=== PATIENT | female | born 1980 | race Caucasian/White ===

== ENCOUNTER 2023-01-05 14:36 | Emergency (ER) | payer OTHER, MEDICAID, SELFPAY ==
[2023-01-05 14:39] VITALS: BP 141/64; PULSE 69; RESP 16; TEMP 36.3; O2SAT 98; BMI 24.3
--- NOTE | 2023-01-05 14:54 | ED_ITS ---
HPI - Abdominal Pain <FREDY Marr - Last Filed: 01/05/23 16:52> General Chief Complaint: Abdominal Pain Stated Complaint: rt flank pain Time Seen by Provider: 01/05/23 14:42 Source: patient Mode of arrival: Ambulatory History of Present Illness HPI narrative: 42-year-old female, daily smoker, presents to the emergency department with right flank pain since 0130 today. Patient states that she took ibuprofen at that time, and a few hours afterwards, but did not help with the pain. Patient states that it feels like a ?labor like? pain with 2 seconds on and 2 seconds off of sharp pain. History kidney infection in the past, no history of kidney stones. Patient denies any extraneous activity last evening and pain is not worsened with movement or palpation. Patient does endorse that she has had to urinate more frequently since the pain started, and may have mild improvement of pain after urinating. Menses ended yesterday. Related Data Allergies Allergy/AdvReac Type Severity Reaction Status Date / Time No Known Drug Allergies Allergy Verified 01/05/23 14:38 Review of Systems <FREDY Marr - Last Filed: 01/05/23 16:52> Review of Systems Narrative: Narrative: See HPI. GENERAL: Denies chills, fatigue, fever, sweats. HEENT: Denies sinus pain, ear pain, sore throat, difficulty swallowing, dizziness. RESPIRATORY: Denies dyspnea, cough, wheezing, sputum. CARDIOVASCULAR: Denies chest pain, palpitations, edema. GASTROINTESTINAL: Denies nausea, vomiting, abdominal pain, diarrhea, constipation, vaginal itching, bleeding or discharge. : Denies dysuria, incontinence, hematuria, urinary retention. Endorses urinary frequency and right flank pain. MSK: Denies weakness, joint pain, or bony pain. SKIN: Denies rash, skin lesions, or pruritis. NEUROLOGIC: Denies weakness, dizziness, headache, numbness, confusion. PSYCHIATRIC: No concerning psychosocial issues. Patient History <FREDY Marr - Last Filed: 01/05/23 16:52> Social History Smoking Status: Current every day smoker Smoking Status: Current every day smoker tobacco type: cigarettes alcohol intake frequency: 0-2 drinks per day Substance Use Type: does not use Exam <FREDY Marr - Last Filed: 01/05/23 16:52> Narrative Exam Narrative: Exam Narrative: GENERAL: This is a well-nourished, well-developed patient, in no acute distress. HEAD: Atraumatic. Normocephalic. EYES: Pupils equal round and reactive. No scleral icterus, injection or drainage. ENT: Nose without bleeding, purulent drainage. Airway patent. NECK: Trachea midline. No JVD. CARDIOVASCULAR: Regular rate and rhythm without murmurs, peripheral pulses intact, cap refill <2 sec. RESPIRATORY: Breath sounds equal and clear bilaterally. No wheezes, rales, or rhonchi. No cough. No increased respiratory effort. No accessory muscle use. GASTROINTESTINAL: Abdomen soft, non-tender, nondistended without guarding or rebound. No suprapubic pain. No CVA tenderness. MSK: Moves all extremities. Normal range of motion, no clubbing or edema. Neurovascularly intact. NEURO: A&O x 3. SKIN: Warm, dry, no rashes or lesions noted. Initial Vital Signs Initial Vital Signs: Vital Signs Temperature 97.4 F L 01/05/23 14:39 Pulse Rate 69 01/05/23 14:39 Respiratory Rate 16 01/05/23 14:39 Blood Pressure 141/64 H 01/05/23 14:39 Pulse Oximetry 98 01/05/23 14:39 Oxygen Delivery Method Room Air 01/05/23 14:39 Reviewed <Maya De Dios DO - Last Filed: 01/06/23 07:50> Initial Vital Signs Initial Vital Signs: Vital Signs Temperature 97.4 F L 01/05/23 14:39 Pulse Rate 69 01/05/23 14:39 Respiratory Rate 16 01/05/23 14:39 Blood Pressure 141/64 H 01/05/23 14:39 Pulse Oximetry 98 01/05/23 14:39 Oxygen Delivery Method Room Air 01/05/23 14:39 Course <FREDY Marr - Last Filed: 01/05/23 16:52> Orders Ordered: ED Orders 01/05/23 14:45 Urine Culture Stat Urine Microscopic Stat 01/05/23 15:42 CT abdomen pelvis w con Stat 01/05/23 15:55 Ammonia ([email or web address]) Stat Complete Blood Count AUTO DIFF Stat Comprehensive Metabolic Panel Stat Lipase Stat Vital Signs Vital signs: Vital Signs - 8 hr 01/05/23 14:39 Temperature 97.4 F L Pulse Rate 69 Respiratory Rate 16 Blood Pressure 141/64 H Pulse Oximetry 98 Oxygen Delivery Method Room Air <Maya De Dios DO - Last Filed: 01/06/23 07:50> Orders Ordered: ED Orders 01/05/23 14:45 Urine Culture Stat Urine Microscopic Stat 01/05/23 15:42 CT abdomen pelvis w con Stat 01/05/23 15:55 Ammonia (NH3) Stat Complete Blood Count AUTO DIFF Stat Comprehensive Metabolic Panel Stat Lipase Stat Vital Signs Vital signs: Vital Signs - 8 hr 01/05/23 14:39 Temperature 97.4 F L Pulse Rate 69 Respiratory Rate 16 Blood Pressure 141/64 H Pulse Oximetry 98 Oxygen Delivery Method Room Air MDM - Abdominal Pain <FREDY Marr - Last Filed: 01/05/23 16:52> Differential Diagnosis Differential diagnosis: Likely abdominal pain, calculus of kidney and other (UTI, pyelonephritis) Lab Data 01/05/23 15:55 01/05/23 15:55 Labs: Lab Results 01/05/23 01/05/23 Range/Units 14:45 15:55 WBC 10.9 (4.5-11.0) X10^3/uL RBC 3.75 L (4.0-5.2) X10^6/uL Hgb 13.6 (12.0-16.0) g/dL Hct 40.1 (36-46) % MCV 106.8 H (80-100) fL MCH 36.3 H (26-34) PG MCHC 34.0 (30-36) % RDW 12.7 (11.6-14.8) % Plt Count 310 (150-400) X10^3/uL Neut % (Auto) 71.6 (50-75) % Lymph % (Auto) 18.5 L (25-40) % [place] % (Auto) 7.8 (3-14) % Eos % (Auto) 1.3 L (2-4) % Baso % (Auto) 0.8 (0-2) % Neut # (Auto) 7800 H (1593-3843) /uL Lymph # (Auto) 2000 (7210-4787) /uL [place] # (Auto) 800 (0-900) /uL Eos # (Auto) 100 (0-450) /uL Baso # (Auto) 100 (0-100) /uL Sodium 138 (137-145) mmol/L Potassium 3.9 (3.4-5.1) mmol/L Chloride 104 (98-107) mmol/L Carbon Dioxide 25 (22-32) mmol/L BUN 12 (7-17) mg/dL Creatinine 0.64 (0.52-1.04) mg/dL Estimated GFR > 60 (>60) mL/min BUN/Creatinine Ratio 18.8 (6-22) Glucose 113 H (70-100) mg/dL Calcium 10.0 (8.4-10.2) mg/dL Total Bilirubin 0.3 (0.2-1.3) mg/dL AST 29 (14-36) IU/L ALT 23 (<35) IU/L Alkaline Phosphatase 73 (38-126) U/L Ammonia 14 (9-30) umol/L Total Protein 7.1 (6.3-8.2) g/dL Albumin 4.4 (3.5-5.0) g/dL Globulin 2.7 (1.7-4.1) g/dL Albumin/Globulin Ratio 1.6 (1.0-2.8) Lipase 108 (23-300) U/L Urine RBC 0-1/hpf (0-5/HPF) Urine WBC 1-5/hpf (0-5/HPF) Ur Squamous Epith Cells 5-10 /hpf H (0-5/HPF) Urine Bacteria Occasional (0-1) (None) Ur Culture Indicated? Specimen cultured Point of care testing: Point of Care Testing Test Results Negative Urine Dip Bedside Urine Glucose Negative Bedside Urine Bilirubin - Negative Bedside Urine Ketone - Negative Urine Specific [place] 1.005 Bedside Urine Occult Blood +++ Bedside Urine pH 6.0 Bedside Urine Protein - Negative Bedside Urine Urobilinogen - Negative Bedside Urine Nitrite - Negative Bedside Urine Leukocytes - Negative Esterase Imaging Data CT scan - abdomen/pelvis: Radiologist's Impression: Close Abdomen/Pelvis CT (Signed) Cayden Lockhart - 01/05/23 Launch?[address] [address] [address] Scan Report Signed Patient: Corinna Hanley MR#: [id number] : 1980 Acct:[id number] Age/Sex: 42 / F Date of Service: 01/05/23 Loc: ED Accession Number: [id number] Procedure: CT abdomen pelvis w con Ordering Provider: Jose Dc PROCEDURE: CT ABDOMEN PELVIS W CON INDICATIONS: Right pain TECHNIQUE: After the administration of intravenous contrast, axial sections acquired from the lung bases to the pubic symphysis. Coronal and sagittal reformats were performed. For radiation dose reduction, the following was used: automated exposure control, adjustment of mA and/or kV according to patient size. COMPARISON: None. FINDINGS: Lower thorax: The lung bases are clear. Heart size normal. No hiatal hernia. Liver: Normal in size and attenuation. No contour deformity present. Biliary system: No calcified cholelithiasis or pericholecystic inflammation. No intra or extrahepatic bile duct dilatation. Pancreas: Unremarkable without mass or inflammation evident. Spleen: Normal in size and density. Adrenals: Normal morphology and density. Reproductive system: Unremarkable as visualized. Urinary system: Right renal multifocal cysts and left renal nonobstructing calculus measuring 7 x 3 mm no hydronephrosis or solid mass lesion bilaterally. Right renal scarring noted. Gastrointestinal system: The bowel is unremarkable without evidence of bowel obstruction or inflammation. The stomach appears unremarkable. Appendix: No findings to suggest acute appendicitis. Peritoneal spaces: No mesenteric or retroperitoneal adenopathy. No free air. No free fluid. Vasculature: The IVC, aorta and iliac vasculature are unremarkable. Abdominal wall: Abdominal wall intact without evidence of ventral or inguinal hernias. Musculoskeletal: Normal bone mineralization. No acute fractures. IMPRESSION: 1. No acute CT findings in the abdomen and pelvis. Paragraphs incidental nonobstructing left renal calculus Approved by: Cayden Lockhart M.D. on 01/05/2023 at 15:31 MDM Narrative Medical decision making narrative: 42-year-old female, daily smoker, presenting to the emergency department with right flank pain and urinary frequency. Point of care urine dip was not consistent with UTI, positive blood only. HCG was negative. Will obtain baseline labs and abdominal/pelvis CT. CT revealed Right renal multifocal cysts and left renal nonobstructing calculus measuring 7 x 3 mm. Baseline labs are non concerning. Patient is stable and will be discharged home. Instructions included drinking plenty of water, at least 60 oz per day, and NSAIDs for discomfort. Discussed plan of care and worsening symptoms that would necessitate a return visit. Patient and spouse verbalized understanding and were agreeable with course of action. <Maya De Dios, DO - Last Filed: 01/06/23 07:50> Lab Data Labs: Lab Results 01/05/23 01/05/23 Range/Units 14:45 15:55 WBC 10.9 (4.5-11.0) X10^3/uL RBC 3.75 L (4.0-5.2) X10^6/uL Hgb 13.6 (12.0-16.0) g/dL Hct 40.1 (36-46) % MCV 106.8 H (80-100) fL MCH 36.3 H (26-34) PG MCHC 34.0 (30-36) % RDW 12.7 (11.6-14.8) % Plt Count 310 (150-400) X10^3/uL Neut % (Auto) 71.6 (50-75) % Lymph % (Auto) 18.5 L (25-40) % [place] % (Auto) 7.8 (3-14) % Eos % (Auto) 1.3 L (2-4) % Baso % (Auto) 0.8 (0-2) % Neut # (Auto) 7800 H (5197-3885) /uL Lymph # (Auto) 2000 (9488-1420) /uL [place] # (Auto) 800 (0-900) /uL Eos # (Auto) 100 (0-450) /uL Baso # (Auto) 100 (0-100) /uL Sodium 138 (137-145) mmol/L Potassium 3.9 (3.4-5.1) mmol/L Chloride 104 (98-107) mmol/L Carbon Dioxide 25 (22-32) mmol/L BUN 12 (7-17) mg/dL Creatinine 0.64 (0.52-1.04) mg/dL Estimated GFR > 60 (>60) mL/min BUN/Creatinine Ratio 18.8 (6-22) Glucose 113 H (70-100) mg/dL Calcium 10.0 (8.4-10.2) mg/dL Total Bilirubin 0.3 (0.2-1.3) mg/dL AST 29 (14-36) IU/L ALT 23 (<35) IU/L Alkaline Phosphatase 73 (38-126) U/L Ammonia 14 (9-30) umol/L Total Protein 7.1 (6.3-8.2) g/dL Albumin 4.4 (3.5-5.0) g/dL Globulin 2.7 (1.7-4.1) g/dL Albumin/Globulin Ratio 1.6 (1.0-2.8) Lipase 108 (23-300) U/L Urine RBC 0-1/hpf (0-5/HPF) Urine WBC 1-5/hpf (0-5/HPF) Ur Squamous Epith Cells 5-10 /hpf H (0-5/HPF) Urine Bacteria Occasional (0-1) (None) Ur Culture Indicated? Specimen cultured Point of care testing: Point of Care Testing Test Results Negative Urine Dip Bedside Urine Glucose Negative Bedside Urine Bilirubin - Negative Bedside Urine Ketone - Negative Urine Specific [place] 1.005 Bedside Urine Occult Blood +++ Bedside Urine pH 6.0 Bedside Urine Protein - Negative Bedside Urine Urobilinogen - Negative Bedside Urine Nitrite - Negative Bedside Urine Leukocytes - Negative Esterase Discharge Plan Departure Patient Disposition: Home Clinical Impression: Calculus of kidney Instructions: DI for Kidney Stones Activity Restrictions/Additional Instructions: *You have been diagnosed with kidney stones. Your CT revealed Right renal multifocal cysts and left renal nonobstructing calculus measuring 7 x 3 mm. Your urine dip was not consistent with a urinary tract infection. Please make sure you are drinking plenty of water, at least 60 oz of water per day, and try ibuprofen 600 mg 3 times a day with food for the discomfort. For any worsening symptoms that include intolerable pain, Shortness of breath, chest pain, etc. please return to the emergency department immediately. Otherwise, please follow-up with your family doctor as needed. *What to do: *Please continue to take your regular medications as directed. [ ] New medication prescriptions sent to your pharmacy: [ ] [ ] New medication written as a paper prescription [x ] No new medications given *Please follow up with your primary care provider in 2-3 days, call for an appointment. Let them know you were seen in the Emergency Department and that we ask that you be seen in follow up. We will electronically transmit a record of today's note if your PCP is in our system *If you do not have a primary care provider please contact the [facility] Resource line at [phone]. They will ask some questions about your medical history and help get you set up with a doctor in the community. ? Return to ER if you should have any new, worsening or concerning symptoms, such as worsening pain, severe headache, confusion, chest pain, difficulty breathing, fever greater than 101 F, shaking chills, persistent vomiting to the point that you cannot drink fluids, or other new or worsening symptoms. Stand Alone Forms: Patient Portal/API ED Sign-out <Maya De Dios DO - Last Filed: 01/06/23 07:50> Cosign ED Attending Cosvivekature Attestation: I was immediately available in the department for consultation. Documentation has been reviewed.
[2023-01-05 15:19] LABS: Bacteria Urine Occasional (0-1); Culture Indicated Urine Specimen Cultured; RBC Urine 0-1/HPF (0-5/HPF); Squamous Epithelial Cell Urine 5-10 /HPF (0-5/HPF); WBC Urine 1-5/HPF (0-5/HPF)
--- NOTE | 2023-01-05 15:42 | DI.CT.S_ITS ---
PROCEDURE: CT ABDOMEN PELVIS W CON INDICATIONS: Right pain TECHNIQUE: After the administration of intravenous contrast, axial sections acquired from the lung bases to the pubic symphysis. Coronal and sagittal reformats were performed. For radiation dose reduction, the following was used: automated exposure control, adjustment of mA and/or kV according to patient size. COMPARISON: None. FINDINGS: Lower thorax: The lung bases are clear. Heart size normal. No hiatal hernia. Liver: Normal in size and attenuation. No contour deformity present. Biliary system: No calcified cholelithiasis or pericholecystic inflammation. No intra or extrahepatic bile duct dilatation. Pancreas: Unremarkable without mass or inflammation evident. Spleen: Normal in size and density. Adrenals: Normal morphology and density. Reproductive system: Unremarkable as visualized. Urinary system: Right renal multifocal cysts and left renal nonobstructing calculus measuring 7 x 3 mm no hydronephrosis or solid mass lesion bilaterally. Right renal scarring noted. Gastrointestinal system: The bowel is unremarkable without evidence of bowel obstruction or inflammation. The stomach appears unremarkable. Appendix: No findings to suggest acute appendicitis. Peritoneal spaces: No mesenteric or retroperitoneal adenopathy. No free air. No free fluid. Vasculature: The IVC, aorta and iliac vasculature are unremarkable. Abdominal wall: Abdominal wall intact without evidence of ventral or inguinal hernias. Musculoskeletal: Normal bone mineralization. No acute fractures. IMPRESSION: 1. No acute CT findings in the abdomen and pelvis. Paragraphs incidental nonobstructing left renal calculus Approved by: Cayden Lockhart M.D. on 01/05/2023 at 15:31
[2023-01-05 16:14] LABS: Add Manual Diff / Slide Review NO; Basophils Absolute Auto 100 /uL (0-100); Basophils Percent Auto 0.8 % (0-2); Eosinophils Absolute Auto 100 /uL (0-450); Eosinophils Percent Auto 1.3 % (2-4); Hematocrit 40.1 % (36-46); Hemoglobin 13.6 g/dL (12.0-16.0); Lymphocytes Absolute Auto 2000 /uL (1100-4500); Lymphocytes Percent Auto 18.5 % (25-40); Mean Corpuscular Hemoglobin 36.3 PG (26-34); Mean Corpuscular Volume 106.8 fL (80-100); Monocytes Absolute Auto 800 /uL (0-900); Monocytes Percent Auto 7.8 % (3-14); Neutrophils Absolute Auto 7800 /uL (1500-7000); Neutrophils Percent Auto 71.6 % (50-75); Platelet Count 310 X10^3/uL (150-400); Red Blood Cell Count 3.75 X10^6/uL (4.0-5.2); Red Cell Distribution Width 12.7 % (11.6-14.8); White Blood Cell Count 10.9 X10^3/uL (4.5-11.0)
[2023-01-05 16:20] LABS: Alanine Aminotransferase 23 IU/L (<35); Albumin 4.4 g/dL (3.5-5.0); Albumin Globulin Ratio 1.6 (1.0-2.8); Alkaline Phosphatase 73 U/L (38-126); Aspartate Aminotransferase 29 IU/L (14-36); BUN Creatinine Ratio 18.8 (6-22); Bilirubin Total 0.3 mg/dL (0.2-1.3); Blood Urea Nitrogen 12 mg/dL (7-17); Carbon Dioxide 25 mmol/L (22-32); Chloride 104 mmol/L (98-107); Estimated Glomerular Filt Rate > 60 mL/min (>60); Globulin 2.7 g/dL (1.7-4.1); Glucose 113 mg/dL (70-100); HEMOLYSIS < 15 (0-50); Lipase 108 U/L (23-300); Potassium 3.9 mmol/L (3.4-5.1); Sodium 138 mmol/L (137-145); Total Protein 7.1 g/dL (6.3-8.2)
[2023-01-05 16:21] LABS: Ammonia (NH3) 14 umol/L (9-30)
[2023-01-05 17:46] VITALS: BP 119/59; PULSE 78; RESP 14; O2SAT 99
== END 2023-01-05 17:47 | disposition home or self-care (01) ==
PROVIDERS: Emergency Provider Registered Nurse
DX: N20.0 Calculus of kidney (principal)
CPT/HCPCS: 36415; 74177; 80053; 81003; 81015; 81025; 82140; 83690; 85025; 87086; 99284; Q9967